=== PATIENT | female | born 1965 | race Hispanic/Latino ===

== ENCOUNTER 2018-11-01 23:40 | Emergency (ER) | payer BC, OTHER ==
[~2018-11-01] VITALS: Ht 154.9 cm; Wt 65.8 kg
[~2018-11-01 23:40] MED LIST: AZITHROMYCIN PO; COLACE100 MG PO; FERROUS SULFATE PO; MACROBID 100 M100 MG PO; TYLENOL # 31 EA PO; VENTOLIN HFA18 GM IH; ZYRTEC PO
--- OUTSIDE RECORDS SUMMARY | 2018-11-01 23:44 | XMS REPORT | Continuity of Care Document ---
Author Author INTERNET BUSINESS TRADER Address Unknown Phone Unavailable Care Team Providers Care Supervisory Air Intercept Controller Name Role Phone IdenIve Information Zoomy Unavailable Unavailable Problems Problem Status Onset Date Classification Date Reported Comments Source Allergy, unspecified, initial encounter 03/31/2018 10/09/2018 [facility] Allergic reaction 03/22/2018 10/09/2018 [facility] ALERGIC REACTION Active 03/22/2018 [facility] J20.8 Active 07/04/2016 [facility] Unspecified asthma, uncomplicated 10/09/2018 [facility] Asthma Resolved Problem 10/09/2018 [facility] Medications Medication Details Route Status Patient Instructions Ordering Provider Order Date Source 0.3 ML Epinephrine 1 MG/ML Prefilled Syringe [Epipen] 0.3 mg, IM, ONCE, # 1 box, 0 Refill(s) Active 03/22/2018 [facility] Diphenhydramine Hydrochloride 25 MG Oral Tablet [Benadryl] 25 mg=1 tab, PO, TID, X 5 day, # 15 tab, 0 Refill(s) No Longer Active 03/22/2018 [facility] Famotidine 20 MG Oral Tablet [Pepcid] 20 mg=1 tab, PO, BID, # 10 tab, 0 Refill(s) Active 03/22/2018 [facility] predniSONE 20 mg oral tablet 60 mg=3 tab, PO, Daily, Take 3 tablets for 60 mg dose, X 5 day, # 15 tab, 0 Refill(s) No Longer Active 03/22/2018 [facility] Sodium Chloride 0.9% (Bolus) IV 1,000 mL, Infuse Over: 1 hr, Route: IV, ONCE, Priority: STAT, kg, Start date: 03/22/18 13:44:00 CELL ATTENDANT HELPER, Stop date: 03/22/18 13:44:00 CELL ATTENDANT HELPER Inactive 03/22/2018 [facility] Pepcid 20 mg, Route: IVP, ONCE, kg, Priority: STAT, Start date: 03/22/18 13:44:00 CELL ATTENDANT HELPER, Stop date: 12/10/18 13:44:00 CELL ATTENDANT HELPER Inactive 03/22/2018 [facility] Dexamethasone 10 mg, Route: IVP, ONCE, kg, Priority: STAT, Start date: 03/22/18 13:44:00 CELL ATTENDANT HELPER, Stop date: 03/22/18 13:44:00 CELL ATTENDANT HELPER Inactive 03/22/2018 [facility] Benadryl 25 mg, Route: IVP, ONCE, kg, Priority: STAT, Start date: 03/22/18 13:44:00 CELL ATTENDANT HELPER, Stop date: 03/22/18 13:44:00 CELL ATTENDANT HELPER Inactive 03/22/2018 [facility] Albuterol 0.833 MG/ML / Ipratropium Advance 0.167 MG/ML Inhalant Solution [DuoNeb] 3 ml, Route: NEB, Drug Form: SOLN, kg, PRN, PRN Respiratory Pathway, Start date: 03/22/18 13:44:00 CELL ATTENDANT HELPER, Duration: 30 day, Stop date: 04/21/18 13:43:00 CSTNotes: (Same as: Duoneb) Inactive 03/22/2018 [facility] Allergies, Adverse Reactions, Alerts Substance Category Reaction Severity Reaction type Status Date Reported Comments Source No Known Medication Allergies Assertion Drug allergy [facility] Immunizations No Data Provided for This Section Results No Data Provided for This Section Pathology Reports No Data Provided for This Section Diagnostic Reports Report Value Date Source Chest 2 views DX CHEST, 2 VIEWS HISTORY: J20.8 Acute bronchitis due to other specified organisms; COMPARISON: None available. FINDINGS: The lungs are clear. No pleural effusion or pneumothorax. Heart size normal. No acute osseous abnormality. SL: [id number] 07/05/2016 [facility] Consultation Notes No Data Provided for This Section Discharge Summaries No Data Provided for This Section History and Physicals No Data Provided for This Section Vital Signs Vital Sign Value Date Comments Source Respitory Rate 18 03/22/2018 [facility] Heart Rate 60 03/22/2018 [facility] Respitory Rate 18 03/22/2018 [facility] Systolic (mm Hg) 116 03/22/2018 [facility] Diastolic (mm Hg) 80 03/22/2018 [facility] Height 154.94 cm 03/22/2018 [facility] Temperature Oral (F) 98 F 03/22/2018 [facility] BMI Calculated 24.99 03/22/2018 [facility] Weight 60 03/22/2018 [facility] Encounters Location Location Details Encounter Type Encounter Number Reason For Visit Attending Provider ADM Date DC Date Status Source [facility] Outpatient [id number] [place] Vital 07/05/2016 07/06/2016 [facility] [id number] Kosta Hathawayal 03/22/2018 03/22/2018 [facility] Procedures No Data Provided for This Section Assessment and Plan No Data Provided for This Section Plan of Care No Data Provided for This Section Social History Social History Date Source Social History TypeResponse Smoking Status Never smoker; Previous treatment: None; Ready to change: No; Concerns about tobacco use in household: No; Exposure to Tobacco Smoke None; Cigarette Smoking Last 365 Days No; Reg Smoking Cessation Counseling No entered on: 03/22/18 03/22/2018 [facility] Family History No Data Provided for This Section Advance Directives No Data Provided for This Section Functional Status No Data Provided for This Section
--- OUTSIDE RECORDS SUMMARY | 2018-11-01 23:44 | XMS REPORT | Summary of Care ---
Author Author [facility] Organization [facility] Address Unknown Phone Unavailable Encounter HQ Encntr_alias(GIANFRANCO) [id number] Date(s): 07/05/16 - 07/05/16 [facility] [address] [place] [address]- [phone] Discharge Disposition: Home or Self Care Attending Physician: [place] Munoz MD Vital Signs No data available for this section Problem List No data available for this section Allergies, Adverse Reactions, Alerts No data available for this section Medications No data available for this section Results No data available for this section Immunizations No data available for this section Procedures No data available for this section Social History No data available for this section Assessment and Plan No data available for this section
--- OUTSIDE RECORDS SUMMARY | 2018-11-01 23:44 | XMS REPORT | Summary of Care ---
Author Author [facility] Organization [facility] Address Unknown Phone Unavailable Encounter HQ Rika(GIANFRANCO) [id number] Date(s): 03/22/18 - 03/22/18 [facility] [address] [place] [address]- Encounter Diagnosis Allergy, unspecified, initial encounter (Final) - 03/30/18 Unspecified asthma, uncomplicated (Final) - Allergic reaction (Discharge Diagnosis) - 03/22/18 Discharge Disposition: Home or Self Care Attending Physician: Kosta Ramos MD Vital Signs Most recent to 1 2 oldest [Reference Range]: Height 154.94 cm (03/22/18 1:39 PM) Temperature Oral 98 DegF [96.4-99.1 DegF] (03/22/18 1:39 PM) Blood Pressure 116/80 mmHg [90-140/60-90 mmHg] (03/22/18 1:39 PM) Respiratory Rate 18 BRMIN 18 BRMIN [14-20 BRMIN] (03/22/18 1:54 PM) (03/22/18 1:39 PM) Peripheral Pulse 60 bpm Rate [60-100 bpm] (03/22/18 1:39 PM) Weight 60 kg (03/22/18 1:39 PM) Body Mass Index 24.99 m2 (03/22/18 1:39 PM) Problem List Condition Effective Dates Status Health Status Informant Asthma(Confirmed) Resolved Allergies, Adverse Reactions, Alerts No Known Medication Allergies Medications Benadryl 25 mg, Route: IVP, ONCE, kg, Priority: STAT, Start date: 03/22/18 13:44:00 INTERCHANGE AGENT, Stop date: 03/22/18 13:44:00 INTERCHANGE AGENT Start Date: 03/22/18 Stop Date: 03/22/18 Status: Completed Benadryl 25 mg oral tablet 25 mg=1 tab, PO, TID, X 5 day, # 15 tab, 0 Refill(s) Start Date: 03/22/18 Stop Date: 03/27/18 Status: Completed dexamethasone 10 mg, Route: IVP, ONCE, kg, Priority: STAT, Start date: 03/22/18 13:44:00 INTERCHANGE AGENT, Stop date: 03/22/18 13:44:00 INTERCHANGE AGENT Start Date: 03/22/18 Stop Date: 03/22/18 Status: Completed DuoNeb inhalation solution 3 ml, Route: NEB, Drug Form: SOLN, kg, PRN, PRN Respiratory Pathway, Start date: 03/22/18 13:44:00 INTERCHANGE AGENT, Duration: 30 day, Stop date: 04/21/18 13:43:00 INTERCHANGE AGENT Notes: (Same as: Duoneb) Start Date: 03/22/18 Stop Date: 03/22/18 Status: Discontinued EpiPen Auto-Injector 0.3 mg injectable kit 0.3 mg, IM, ONCE, # 1 box, 0 Refill(s) Start Date: 03/22/18 Status: Ordered Pepcid 20 mg, Route: IVP, ONCE, kg, Priority: STAT, Start date: 03/22/18 13:44:00 INTERCHANGE AGENT, Stop date: 03/22/18 13:44:00 INTERCHANGE AGENT Start Date: 03/22/18 Stop Date: 03/22/18 Status: Completed Pepcid 20 mg oral tablet 20 mg=1 tab, PO, BID, # 10 tab, 0 Refill(s) Start Date: 03/22/18 Stop Date: 03/27/18 Status: Ordered predniSONE 20 mg oral tablet 60 mg=3 tab, PO, Daily, Take 3 tablets for 60 mg dose, X 5 day, # 15 tab, 0 Refi ll(s) Start Date: 03/22/18 Stop Date: 03/27/18 Status: Completed Sodium Chloride 0.9% (Bolus) IV 1,000 mL, Infuse Over: 1 hr, Route: IV, ONCE, Priority: STAT, kg, Start date: 13:44:00 INTERCHANGE AGENT, Stop date: 03/22/18 13:44:00 INTERCHANGE AGENT Start Date: 03/22/18 Stop Date: 03/22/18 Status: Completed Results No data available for this section Immunizations No data available for this section Procedures No data available for this section Social History Social History Type Response Smoking Status Never smoker; Previous treatment: None; Ready to change: No; Concerns about tobacco use in household: No; Exposure to Tobacco Smoke None; Cigarette Smoking Last 365 Days No; Reg Smoking Cessation Counseling No entered on: 03/22/18 Assessment and Plan No data available for this section
== END 2018-11-01 23:57 | disposition home or self-care (01) ==
LOC: ER 23:40
DX: Z04.3 Encounter for examination and observation following other accident (principal); W01.0XXA Fall on same level from slipping, tripping and stumbling without subsequent striking against object, initial encounter
CPT/HCPCS: 99282

== ENCOUNTER 2019-10-06 22:24 | Emergency (ER) | payer BC ==
[2019-10-07] MEDS ORDERED: THERAFLU COLD1 EAC4 PO (08:39)
[2019-10-07] MEDS ORDERED: DEXAMETHASONE4 MG PO (08:39)
== END 2019-10-06 22:55 | disposition left against medical advice (07) ==
LOC: FSED 22:24
DX: Z03.818 Encounter for observation for suspected exposure to other biological agents ruled out (principal)

== ENCOUNTER 2019-10-07 08:07 | Emergency (ER) | payer BC ==
[~2019-10-07] VITALS: Ht 154.9 cm; Wt 61.7 kg
[2019-10-07] MEDS ORDERED: DEXAMETHASONE4 MG PO (08:39)
[2019-10-07] MEDS ORDERED: THERAFLU COLD1 EAC4 PO (08:39)
--- NOTE | 2019-10-07 08:39 | Emergency Department Note ---
History of Present Illnes History of Present Illness Chief Complaint: COVID PUI History of Present Illness This is a 54 year old female c/o URI symptoms plus diarrhea for 1 day, and son have covidm hx asthma, no SOB . Historian: Patient Cash Application Clerk Required: No Onset (how long ago): day(s) Severity: moderate Duration (how long): day(s) Progression: waxing and waning Relieving factors: none Exacerbating factors: none Associated symptoms: Reports cough, Reports fever/chills, Reports loss of appetite Past Medical/Family History Physician Review I have reviewed the patient's past medical and family history. Any updates have been documented here. Past Medical History Recent Fever: No Clinical Suspicion of Infectio: No New/Unexplained Change in Ment: No Past Medical History: Asthma Other Medical History: Heart murmur Past Surgical History: Hysterectomy, Hernia Repair Social History Smoking Cessation: Never Smoker Counseling Performed: No Alcohol Use: None Any Illegal Drug Use: No TB Exposure/Symptoms: No Physically hurt or threatened: No Other Last Tetanus: UTD Any Pre-Existing Lines (PICC,: No Is patient up to date on immun: Yes Last Flu: UTD Last Pneumovax: none Review of Systems Review of Systems Constitutional: Reports no symptoms EENTM: Reports nose congestion, Reports throat pain Cardiovascular: Reports no symptoms Respiratory: Reports chest congestion Gastrointestinal: Reports no symptoms, Reports diarrhea Genitourinary: Reports no symptoms Musculoskeletal: Reports no symptoms Integumentary: Reports no symptoms Neurological: Reports no symptoms Psychological: Reports no symptoms Endocrine: Reports no symptoms Hematological/Lymphatic: Reports no symptoms Physical Exam Related Data Allergies: Uncoded Allergies: PEANUTS (Allergy, Severe, anaphylaxis, 10/07/19) PORK (Allergy, Unknown, 10/07/19) Vital signs reviewed: Yes Physical Exam CONSTITUTIONAL Constitutional: Present well-developed, Present well-nourished HENT HENT: Present normocephalic, Present atraumatic, Present oropharynx clear/moist, Present nose normal HENT L/R: Present left ext ear normal, Present right ext ear normal EYES Eyes: Reports PERRL, Reports conjunctivae normal NECK Neck: Present ROM normal PULMONARY Pulmonary: Present effort normal, Present breath sounds normal CARDIOVASCULAR Cardiovascular: Present regular rhythm, Present heart sounds normal, Present capillary refill normal, Present normal rate GASTROINTESTINAL Abdominal: Present soft, Present nontender, Present bowel sounds normal GENITOURINARY Genitourinary: Present exam deferred SKIN Skin: Present warm, Present dry MUSCULOSKELETAL Musculoskeletal: Present ROM normal NEUROLOGICAL Neurological: Present alert, Present oriented x 3, Present no gross motor or sensory deficits PSYCHOLOGICAL Psychological: Present mood/affect normal, Present judgement normal Assessment & Plan Medical Decision Making MDM clinically pt has COVID, no testing needed Assessment & Plan Final Impression: (1) COVID-19 virus infection (2) Gastroenteritis Depart Disposition: HOME, SELF-[facility] Meds Active Scripts Diphenhydra/Phenyleph/Acetamin (THERAFLU COLD AND COUGH POWDER) 1 Each Powd.pack, 1 PACKET PO Q6H PRN for fever and or pain, #12 Prov:PARVIZ LAND MD 10/07/19 Dexamethasone (DEXAMETHASONE) 4 Mg Tablet, 4 MG PO DAILY for 1 Day, #7 TAB Prov:PARVIZ LAND MD 10/07/19 Physician Attestation Provider Attestation taking PO well, sat normal, can be d/c PARVIZ LAND MD Oct 07, 2019 08:39
== END 2019-10-07 08:50 | disposition home or self-care (01) ==
LOC: FSED 08:07
DX: U07.1 COVID-19 (principal); R05 Cough; K52.9 Noninfective gastroenteritis and colitis, unspecified; J45.909 Unspecified asthma, uncomplicated
CPT/HCPCS: 99282

== ENCOUNTER 2021-06-16 20:51 | Emergency (ER) | payer BC ==
[~2021-06-16] VITALS: Ht 154.9 cm; Wt 61.7 kg
[~2021-06-16 20:51] MED LIST changes: +DEXAMETHASONE4 MG PO; +THERAFLU COLD1 EAC4 PO
[2021-06-16] MEDS ORDERED: THERAFLU FLU &1 EAC1 PO (21:24)
[2021-06-16] MEDS ORDERED: LORATADINE10 MG PO (21:24)
[2021-06-16] MEDS ORDERED: PREDNISONE20 MG PO (21:29)
[2021-06-16] MEDS ORDERED: DEXAMETHASONE SOD PHOS INJ 4 MG/ML SDV IM ONE (21:30)
[2021-06-16 21:41] VITALS: BP 124/82
[2021-06-16] MEDS ORDERED: DEXAMETHASONE SOD PHOS INJ 4 MG/ML SDV ONE (21:42)
== END 2021-06-16 21:35 | disposition home or self-care (01) ==
LOC: FSED 21:23
DX: J30.9 Allergic rhinitis, unspecified (principal); R09.89 Other specified symptoms and signs involving the circulatory and respiratory systems; R01.1 Cardiac murmur, unspecified
CPT/HCPCS: 99282; J1100

== ENCOUNTER 2022-05-27 23:39 | Emergency (ER) | payer SELFPAY ==
[~2022-05-27] VITALS: Ht 154.9 cm; Wt 65.3 kg
[~2022-05-27 23:39] MED LIST changes: +LORATADINE10 MG PO; +PREDNISONE20 MG PO; +THERAFLU FLU &1 EAC1 PO
[2022-05-28] MEDS ORDERED: VENTOLIN HFA18 GM INH (01:24)
[2022-05-28] MEDS ORDERED: NASACORT16.9 ML NS (01:24)
[2022-05-28 01:33] VITALS: BP 146/78
== END 2022-05-28 01:33 | disposition home or self-care (01) ==
LOC: FSED 23:47
DX: R06.02 Shortness of breath (principal); R00.2 Palpitations; R09.89 Other specified symptoms and signs involving the circulatory and respiratory systems; J30.9 Allergic rhinitis, unspecified
CPT/HCPCS: 71046; 80053; 81003; 82553; 84484; 85025; 85379; 93005; 99283

== ENCOUNTER 2023-01-31 18:17 | Emergency (ER) | payer BC, OTHER ==
[~2023-01-31] VITALS: Ht 154.9 cm; Wt 61.2 kg
[~2023-01-31 18:17] MED LIST changes: +NASACORT16.9 ML NS; +VENTOLIN HFA18 GM INH
[2023-01-31] MEDS ORDERED: DEXAMETHASONE SOD PHOS INJ 4 MG/ML SDV ONE (19:43)
[2023-01-31] MEDS ORDERED: DEXAMETHASONE SOD PHOS INJ 4 MG/ML SDV IM ONE ×2 (19:45→20:00)
[2023-01-31 20:00] VITALS: BP 123/69; PULSE 73; RESP 18; TEMP 98; O2SAT 98
== END 2023-01-31 20:00 | disposition home or self-care (01) ==
LOC: FSED 18:39
DX: J45.909 Unspecified asthma, uncomplicated (principal); R01.1 Cardiac murmur, unspecified; Z20.822 Contact with and (suspected) exposure to COVID-19
CPT/HCPCS: 0223U; 83518; 87400; 96372; 99282; J1100